=== PATIENT | female | born 1980 | race African-American/Black ===

== ENCOUNTER 2017-08-24 18:16 | Emergency (ER) | payer MEDICAID ==
[~2017-08-24] VITALS: Ht 165.1 cm; Wt 112.0 kg
[2017-08-24 23:42] LABS: BASOPHILS % 0.7 % (0.0-2.0); EOSINOPHILS % 0.7 % (0.0-5.0); HEMATOCRIT. 37.7 % (36.0-48.0); HEMOGLOBIN. 12.7 g/dL (12.0-16.0); LYMPHOCYTES % 22.3 % (20.0-50.0); MEAN CORPUSCULAR HEMOGLOBIN 29.3 pg (28.0-32.0); MEAN CORPUSCULAR VOLUME 86.8 fL (81.0-99.0); MEAN PLATELET VOLUME 8.1 fl (7.4-10.4); MONOCYTES % 6.1 % (2.0-8.0); NEUTROPHILS % 70.2 % (40.0-76.0); PLATELET 314 x1000/uL (130-400); RED BLOOD CELL COUNT 4.34 mill/uL (4.2-5.4); RED CELL DISTRIBUTION WIDTH 14.3 % (11.6-14.6)
[2017-08-24 23:54] LABS: CARBON DIOXIDE 25 mEq/L (21-32); CHLORIDE 105 mEq/L (98-107)
[2017-08-25 00:01] LABS: B-HCG QUANTITATIVE 48105 mIU/mL (<3)
[2017-08-25 01:14] LABS: CLARITY URINE CLEAR (CLEAR); COLOR URINE YELLOW (YELLOW); GLUCOSE URINE NEGATIVE (NEGATIVE); KETONES URINE 1+ (NEGATIVE); LEUKOCYTE ESTERASE URINE NEGATIVE (NEGATIVE); NITRITE URINE NEGATIVE (NEGATIVE); OCCULT BLOOD URINE 3+ (NEGATIVE); PH URINE 5.5 (4.5-8.0); PROTEIN URINE NEGATIVE (NEGATIVE); SPECIFIC GRAVITY URINE 1.011 (1.005-1.030); UROBILINOGEN URINE 0.2 E.U./dL (0.2-1.0)
[2017-08-25] MEDS ORDERED: SODIUM CHLORIDE 0.9% 1,000 ML IV ONE (01:48)
[2017-08-25 03:50] VITALS: BP 116/88
== END 2017-08-25 04:21 | disposition home or self-care (01) ==
LOC: ER 19:21
DX: O20.8 Other hemorrhage in early pregnancy (principal); Z3A.15 15 weeks gestation of pregnancy
CPT/HCPCS: 36415; 76801; 80048; 81001; 81025; 84702; 85025; 86850; 86900; 96360; 99285

== ENCOUNTER 2025-04-25 14:50 | Emergency (ER) | payer MEDICAID ==
[~2025-04-25] VITALS: Ht 165.1 cm; Wt 128.0 kg
[2025-04-25 14:58] VITALS: O2SAT 96
[2025-04-25] MEDS: TETRACAINE 0.5% OPHTH DROPS 4ML BOTHEYE ONE (15:49)
[2025-04-25] MEDS: FLUORESCEIN SODIUM 1MG/STRIP BOTHEYE ONE (15:49)
[2025-04-25 19:13] LABS: BASOPHILS % 0.6 % (0.0-2.0); EOSINOPHILS % 1.3 % (0.0-5.0); HEMATOCRIT. 41.1 % (36.0-48.0); HEMOGLOBIN. 13.4 g/dL (12.0-16.0); LYMPHOCYTES % 24.6 % (20.0-50.0); MEAN CORPUSCULAR HEMOGLOBIN 28.3 pg (28.0-32.0); MEAN CORPUSCULAR HGB CONC 32.5 g/dL (31.0-37.0); MEAN CORPUSCULAR VOLUME 87.1 fL (81.0-99.0); MEAN PLATELET VOLUME 8.5 fl (7.4-10.4); MONOCYTES % 5.6 % (2.0-8.0); NEUTROPHILS % 67.9 % (40.0-76.0); PLATELET 339 x1000/uL (130-400); RED BLOOD CELL COUNT 4.72 mill/uL (4.2-5.4); RED CELL DISTRIBUTION WIDTH 14.2 % (11.6-14.6); WHITE BLOOD COUNT 12.7 x1000/uL (4.5-11.0)
[2025-04-25 19:20] LABS: CHLORIDE 105 mEq/L (98-107); POTASSIUM 3.8 mEq/L (3.5-5.1); SODIUM 142 mEq/L (136-145)
[2025-04-25 19:21] LABS: CALCIUM 10.1 mg/dL (8.7-10.4); CARBON DIOXIDE 28 mEq/L (21-32)
[2025-04-25 19:23] LABS: PROTHROMBIN TIME 10.9 sec (9.6-11.0)
[2025-04-25 19:26] LABS: CREATININE 0.8 mg/dL (0.6-1.0); GLUCOSE 91 mg/dL (70-105); UREA NITROGEN BLOOD 8 mg/dL (9-23)
[2025-04-25] MEDS: METOCLOPRAMIDE HCL 10MG/2ML VIAL IV ONE (20:32)
[2025-04-25] MEDS: KETOROLAC 30MG/ML VIAL IV ONE (20:33)
[2025-04-25] MEDS: ACETAMINOPHEN 325MG TABLET PO ONE (20:33)
[2025-04-25 22:17] VITALS: BP 124/90; PULSE 76; RESP 16; TEMP 36.8; O2SAT 99
[2025-04-25] MEDS ORDERED: AMOX1TAB16 MT (22:20)
[2025-04-25] MEDS ORDERED: METH4TAB95 MT (22:20)
== END 2025-04-25 22:50 | disposition home or self-care (01) ==
LOC: ER 14:50
DX: G43.109 Migraine with aura, not intractable, without status migrainosus (principal)
CPT/HCPCS: 99285; 70450; 96374; 96375; 80048; 81025; 85025; 85610; 36415; 70480; J1885; J2765

== ENCOUNTER 2025-05-07 11:55 | Emergency (ER) | payer MEDICAID, OTHER ==
[~2025-05-07] VITALS: Ht 165.1 cm; Wt 130.0 kg
[~2025-05-07 11:55] MED LIST: AMOX1TAB16 MT; METH4TAB95 MT
[2025-05-07 12:13] VITALS: TEMP 36.9
[2025-05-07] MEDS ORDERED: PREDNISONE 20MG TABLET PO STA (12:51)
[2025-05-07] MEDS ORDERED: ALBUTEROL (0.083%) 2.5MG/3ML NEB HHN STA (14:25)
[2025-05-07] MEDS ORDERED: IPRATROPIUM BROMIDE (0.02%) 0.5MG/2.5ML NEB HHN STA (14:25)
[2025-05-07] MEDS ORDERED: ALBUTEROL (0.083%) 2.5MG/3ML NEB HHN SCH (14:30)
[2025-05-07] MEDS: IPRATROPIUM BROMIDE (0.02%) 0.5MG/2.5ML NEB HHN STA (14:30)
[2025-05-07] MEDS: ALBUTEROL (0.083%) 2.5MG/3ML NEB HHN STA (14:30)
[2025-05-07 14:34] VITALS: PULSE 97; RESP 18; O2SAT 97
[2025-05-07] MEDS ORDERED: IPRATROPIUM BROMIDE (0.02%) 0.5MG/2.5ML NEB HHN SCH (14:45)
[2025-05-07] MEDS ORDERED: FLUT12AE7 INH (15:59)
[2025-05-07] MEDS ORDERED: ALBU90AE INH (15:59)
[2025-05-07] MEDS ORDERED: AZIT100S15 MT (15:59)
[2025-05-07] MEDS: DEXAMETHASONE 10 MG/ML VIAL PO ONE (16:00)
[2025-05-07] MEDS ORDERED: GUAI600T26 MT (16:01)
[2025-05-07 16:18] VITALS: BP 130/75; PULSE 85; RESP 16; O2SAT 97
== END 2025-05-07 16:24 | disposition home or self-care (01) ==
LOC: ER 11:55
DX: J20.9 Acute bronchitis, unspecified (principal); Z79.51 Long term (current) use of inhaled steroids; Z79.899 Other long term (current) drug therapy
CPT/HCPCS: 71045; 94644; 99285; J1100; Z7610 ×2; 94070; 94640; 94664